=== PATIENT | male | born 2000 ===

== ENCOUNTER 2018-08-19 10:42 | Emergency (ER) | payer OTHER ==
[2018-08-19 10:47] VITALS: BMI 21.4
[2018-08-19 10:52] VITALS: BP 124/63; PULSE 77; RESP 20
--- NOTE | 2018-08-19 11:11 | ED PDOC ---
HPI: General Adult Time Seen by Provider: 08/19/18 11:07 Chief Complaint (Nursing): Abnormal Skin Integrity Chief Complaint (Provider): penile lesion History Per: Patient (18 y/o male here with penile lesions noted this week. States they are painless but associated with lymphadenopathy inguinal region. Patient has had similar solitary ulcer 3 months ago and evaluated in [place]. States he was treated with antibiotics at the time.) Past Medical History Reviewed: Historical Data, Nursing Documentation, Vital Signs Vital Signs: Last Vital Signs Temp 98.5 F 08/19/18 10:47 Pulse 77 08/19/18 10:47 Resp 20 08/19/18 10:47 BP 124/63 08/19/18 10:47 Pulse Ox 99 08/19/18 10:47 - Family History Family History: States: No Known Family Hx - Home Medications Home Medications: Ambulatory Orders Medication Instructions Recorded Doxycycline Monohydrate 100 mg PO BID #42 tablet 08/19/18 - Allergies Allergies/Adverse Reactions: Allergies Allergy/AdvReac Type Severity Reaction Status Date / Time No Known Allergies Allergy Verified 08/19/18 11:06 Review of Systems ROS Statement: Except As Marked, All Systems Reviewed And Found Negative Physical Exam - Reviewed Nursing Documentation Reviewed: Yes Vital Signs Reviewed: Yes - Physical Exam Appears: Positive for: Well, Non-toxic, No Acute Distress Head Exam: Positive for: ATRAUMATIC, NORMAL INSPECTION, NORMOCEPHALIC Skin: Positive for: Normal Color, Warm, DRY Eye Exam: Positive for: EOMI, Normal appearance, PERRL ENT: Positive for: Normal ENT Inspection Neck: Positive for: Normal, Painless ROM Cardiovascular/Chest: Positive for: Regular Rate, Rhythm Respiratory: Positive for: CNT, Normal Breath Sounds Gastrointestinal/Abdominal: Positive for: Normal Exam, Soft Male Genital Exam: Positive for: other (two penile lesions noted 5mm anterior proximal region of penile shaft.) Back: Positive for: Normal Inspection Extremity: Positive for: Normal ROM Neurological/Psych: Positive for: Awake, Alert, Normal Tone - ECG O2 Sat by Pulse Oximetry: 99 - Progress ED Course And Treament: BLOODWORK SENT TO EVALUATION RPR/LGV ANTIBODY/HERPES ANTIBODY. URINE SENT TO EVALUATE G/C Disposition - Clinical Impression Clinical Impression: Penile ulcer - Patient ED Disposition Is Patient to be Admitted: No - Disposition Referrals: [facility] [Outside] Disposition: Routine/Home Disposition Time: 11:58 Condition: FAIR Prescriptions: Doxycycline Monohydrate 100 mg PO BID #42 tablet Instructions: Screening for Sexually Transmitted Infections
[2018-08-19 12:16] VITALS: TEMP 98.2
[2018-08-19 19:57] VITALS: O2SAT 99
== END 2018-08-19 12:10 | disposition home or self-care (01) ==
LOC: H.ER 10:42
DX: N48.5 Ulcer of penis (principal)